=== PATIENT | female | born 1955 | race Caucasian/White ===

== ENCOUNTER 2016-09-25 11:07 | Observation (INO) | payer OTHER ==
[2016-09-24 10:15] LABS: BLOOD UREA NITROGEN 11 mg/dL (7-18)
[2016-09-24 10:18] LABS: ASPARTATE AMINO TRANSFERASE 17 U/L (15-37)
[~2016-09-25] VITALS: Ht 157.5 cm; Wt 89.1 kg
[~2016-09-25 11:07] MED LIST: SERT50TA PO; WILL BRING LIST
[2016-09-25] MEDS ORDERED: SODIUM CHLORIDE 0.9% 1,000 ML IV SCH ×2 (11:21→16:00)
[2016-09-25 11:34] VITALS: BP 128/69
[2016-09-25] MEDS ORDERED: PANT40TA5 PO (11:39)
[2016-09-25] MEDS ORDERED: ESCI10TA PO (11:39)
[2016-09-25] MEDS ORDERED: EMPA10TA PO (11:41)
[2016-09-25] MEDS ORDERED: ASPI-496 PO (11:46)
[2016-09-25] MEDS ORDERED: NITROGLYCERIN 5 MG/ML, 10ML ONE (13:25)
[2016-09-25] MEDS ORDERED: MIDAZOLAM 1 MG/ML, 5ML ONE (13:25)
[2016-09-25] MEDS ORDERED: FENTANYL PF 100 MCG/2ML ONE (13:25)
[2016-09-25] MEDS ORDERED: TICAGRELOR 90 MG TABLET ONE (13:26)
[2016-09-25] MEDS ORDERED: LIDOCAINE 2%, 20ML ONE (13:26)
[2016-09-25] MEDS ORDERED: HEPARIN 1,000 UNITS/ML, 10ML ONE (13:26)
[2016-09-25] MEDS ORDERED: BIVALIRUDIN 250 MG ONE (13:26)
[2016-09-25] MEDS ORDERED: VERAPAMIL 2.5 MG/ML, 2ML ONE (13:26)
[2016-09-25] MEDS ORDERED: ZOLPIDEM 5MG TABLET PO PRN (15:00)
[2016-09-25] MEDS ORDERED: BISACODYL 5 MG EC TABLET PO PRN (15:00)
[2016-09-25] MEDS ORDERED: ACETAMINOPHEN 325 MG TABLET PO PRN (15:00)
[2016-09-25] MEDS ORDERED: ONDANSETRON 2MG/ML, 2ML IVPush PRN (15:00)
[2016-09-25 15:35] VITALS: BP 151/89
[2016-09-25] MEDS ORDERED: HYDROcodone/APAP 5/325 TABLET PO PRN (17:00)
[2016-09-25 20:31] VITALS: BP 123/85
[2016-09-25] MEDS: TICAGRELOR 90 MG TABLET PO SCH (21:26)
[2016-09-26 03:41] VITALS: BP 142/92
[2016-09-26 05:14] LABS: BLOOD UREA NITROGEN 13 mg/dL (7-18)
[2016-09-26] MEDS ORDERED: PANTOPROZOLE 40MG TABLET PO SCH (07:30)
[2016-09-26] MEDS: TICAGRELOR 90 MG TABLET PO SCH (07:56)
[2016-09-26 08:19] VITALS: BP 138/83
[2016-09-26] MEDS ORDERED: CITALOPRAM 20 MG TABLET PO SCH (09:00)
[2016-09-26] MEDS ORDERED: ASPIRIN 81 MG TABLET EC PO SCH (09:00)
[2016-09-26] MEDS ORDERED: ATOR10TA9 PO (09:24)
[2016-09-26] MEDS ORDERED: TICA90TA PO (09:24)
[2016-09-27] MEDS ORDERED: PRAS10TA4 PO (10:55)
[2016-09-27] MEDS ORDERED: NITR0.4T SL (10:55)
== END 2016-09-26 12:30 | disposition home or self-care (01) ==
LOC: CACL 11:07 → ORIP 14:41 → 5SO 15:07 → DCLOUNGE 09-26 12:05
PROVIDERS: ADMIT Internal Medicine Cardiovascular Disease; ATTEND Internal Medicine Cardiovascular Disease
DX: I25.119 Atherosclerotic heart disease of native coronary artery with unspecified angina pectoris (principal); R94.39 Abnormal result of other cardiovascular function study
CPT/HCPCS: 36415; 80048; 80053; 82040; 85014; 85018; 85025; 85610; 85730; 93005; 93458; 93571; 93572; 99156; 99157; C1725; C1769; C1874; C1887; C1894; C9600; G0378; J0583; J1644; J2250; J3010; J3490; J7030; Q9967

== ENCOUNTER 2016-09-26 14:16 | Inpatient (IN) | payer OTHER ==
[~2016-09-26] VITALS: Ht 157.5 cm; Wt 95.1 kg
[~2016-09-26 14:16] MED LIST changes: +ASPI-496 PO; +ATOR10TA9 PO; +EMPA10TA PO; +ESCI10TA PO; +PANT40TA5 PO; +TICA90TA PO
[2016-09-26] MEDS ORDERED: SODIUM CHLORIDE FLUSH 10ML SYR IVF ONE (14:30)
[2016-09-26 14:54] LABS: BLOOD UREA NITROGEN 11 mg/dL (7-18)
[2016-09-26] MEDS ORDERED: NITROGLYCERIN SINGLE TAB 0.4 MG SL ONE (15:47)
[2016-09-26] MEDS ORDERED: NITROGLYCERIN SINGLE TAB 0.4 MG SL PRN (16:00)
[2016-09-26] MEDS ORDERED: SODIUM CHLORIDE FLUSH 10ML SYR IVF PRN (16:30)
[2016-09-26] MEDS ORDERED: HYDROcodone/APAP 5/325 TABLET ONE (17:55)
[2016-09-26] MEDS ORDERED: morphine SULFATE 10 MG/ML, 1ML IV PRN (18:00)
[2016-09-26] MEDS ORDERED: NITROGLYCERIN 0.4 MG BOTTLE (25 TABS) SL PRN (18:00)
[2016-09-26] MEDS ORDERED: ACETAMINOPHEN 325 MG TABLET PO PRN (18:00)
[2016-09-26] MEDS ORDERED: ONDANSETRON 2MG/ML, 2ML IVP PRN (18:00)
[2016-09-26] MEDS ORDERED: HYDROcodone/APAP 5/325 TABLET PO ONE (18:00)
[2016-09-26] MEDS ORDERED: ASPIRIN 325 MG TABLET EC PO ONE (18:00)
[2016-09-26] MEDS ORDERED: NITROGLYCERIN 0.4 MG/SPRAY SL PRN (18:00)
[2016-09-26] MEDS ORDERED: ZOLPIDEM 5MG TABLET PO PRN (18:00)
[2016-09-26 18:50] LABS: IS PT STATUS REG ER OR PRE ER? NO
[2016-09-26 19:12] VITALS: BP 123/84
[2016-09-27 00:06] LABS: IS PT STATUS REG ER OR PRE ER? NO
[2016-09-27 01:51] VITALS: BP 106/58
[2016-09-27 08:36] VITALS: BP 101/67
[2016-09-27] MEDS ORDERED: CITALOPRAM 20 MG TABLET PO SCH (09:00)
[2016-09-27] MEDS ORDERED: PANTOPROZOLE 40MG TABLET PO SCH (09:00)
[2016-09-27] MEDS ORDERED: PRASUGREL 10 MG TABLET PO SCH (09:00)
[2016-09-27] MEDS ORDERED: ASPIRIN 81 MG TABLET EC PO SCH (09:00)
[2016-09-27] MEDS ORDERED: NITR0.4T SL (10:55)
[2016-09-27] MEDS ORDERED: PRAS10TA4 PO (10:55)
== END 2016-09-27 11:47 | disposition home or self-care (01) | DRG 204 ==
LOC: ED 16:18 → EDIP 16:19 → ED 16:36 → 5SO 18:35 → DCLOUNGE 09-27 11:28
PROVIDERS: ADMIT Family Medicine; ATTEND Family Medicine
DX: R06.02 Shortness of breath (principal); I25.10 Atherosclerotic heart disease of native coronary artery without angina pectoris; R07.9 Chest pain, unspecified; E11.9 Type 2 diabetes mellitus without complications; E66.01 Morbid (severe) obesity due to excess calories; E78.5 Hyperlipidemia, unspecified; M26.609 Unspecified temporomandibular joint disorder, unspecified side; I10 Essential (primary) hypertension; I25.2 Old myocardial infarction; Z86.73 Personal history of transient ischemic attack (TIA), and cerebral infarction without residual deficits; Z95.5 Presence of coronary angioplasty implant and graft; Z98.84 Bariatric surgery status; Z68.38 Body mass index [BMI] 38.0-38.9, adult; Z72.89 Other problems related to lifestyle; Z91.048 Other nonmedicinal substance allergy status; T45.525A Adverse effect of antithrombotic drugs, initial encounter
CPT/HCPCS: 36415; 71010; 80048; 80061; 82040; 84484; 85025; 93005

== ENCOUNTER 2016-09-29 13:27 | Inpatient (IN) | payer OTHER ==
[~2016-09-29] VITALS: Ht 157.5 cm; Wt 97.1 kg
[~2016-09-29 13:27] MED LIST changes: +NITR0.4T SL; +PRAS10TA4 PO
[2016-09-29] MEDS ORDERED: ONDANSETRON 2MG/ML, 2ML ONE (13:44)
[2016-09-29] MEDS ORDERED: MORPHINE SULFATE 4 MG/ML, 1ML ONE ×3 (13:44→15:33)
[2016-09-29] MEDS: MORPHINE SULFATE 4 MG/ML, 1ML IVPush PRN ×2 (13:46→14:27)
[2016-09-29] MEDS ORDERED: SODIUM CHLORIDE FLUSH 10ML SYR IVF ONE (14:00)
[2016-09-29] MEDS ORDERED: ONDANSETRON 2MG/ML, 2ML IVPush ONE (14:00)
[2016-09-29 14:28] LABS: BLOOD UREA NITROGEN 15 mg/dL (7-18)
[2016-09-29 15:10] LABS: IS PT STATUS REG ER OR PRE ER? YES
[2016-09-29] MEDS ORDERED: morphine SULFATE 10 MG/ML, 1ML IVPush PRN (16:00)
[2016-09-29] MEDS ORDERED: NITROGLYCERIN 0.4 MG BOTTLE (25 TABS) SL PRN (16:00)
[2016-09-29] MEDS ORDERED: HEPARIN 25,000 UNITS/500ML PMX 500 ML IV PRN ×2 (16:00→16:30)
[2016-09-29] MEDS ORDERED: NITROGLYCERIN OINT 2%, 1GM TP ONE ×2 (16:00→16:13)
[2016-09-29] MEDS ORDERED: HEPARIN 5,000 UNITS/ML, 1ML IV PRN ×2 (16:00→16:30)
[2016-09-29] MEDS ORDERED: MORPHINE SULFATE 4 MG/ML, 1ML IVPush ONE (16:00)
[2016-09-29] MEDS ORDERED: HEPARIN 5,000 UNITS/ML, 1ML IV ONE ×2 (16:00→16:30)
[2016-09-29] MEDS ORDERED: HEPARIN 5,000 UNITS/ML, 1ML ONE (16:10)
[2016-09-29] MEDS ORDERED: HEPARIN 25,000 UNITS/500ML PMX 500 ML ONE (16:11)
[2016-09-29] MEDS ORDERED: NITROGLYCERIN/D5W PMX 250 ML ONE (16:51)
[2016-09-29] MEDS ORDERED: NITROGLYCERIN/D5W PMX 250 ML IV PRN (17:00)
[2016-09-29] MEDS ORDERED: BIVALIRUDIN 250 MG ONE (17:04)
[2016-09-29] MEDS ORDERED: TICAGRELOR 90 MG TABLET ONE (17:04)
[2016-09-29] MEDS ORDERED: HEPARIN 1,000 UNITS/ML, 10ML ONE (17:04)
[2016-09-29] MEDS ORDERED: FENTANYL PF 100 MCG/2ML ONE (17:04)
[2016-09-29] MEDS ORDERED: MIDAZOLAM 1 MG/ML, 5ML ONE (17:04)
[2016-09-29] MEDS ORDERED: NITROGLYCERIN 5 MG/ML, 10ML ONE (17:04)
[2016-09-29] MEDS ORDERED: LIDOCAINE 2%, 20ML ONE (17:04)
[2016-09-29] MEDS ORDERED: VERAPAMIL 2.5 MG/ML, 2ML ONE (17:04)
[2016-09-29] MEDS ORDERED: PRASUGREL 10 MG TABLET ONE (17:16)
[2016-09-29] MEDS ORDERED: ACETAMINOPHEN 325 MG TABLET PO PRN (19:00)
[2016-09-29] MEDS ORDERED: BISACODYL 5 MG EC TABLET PO PRN (19:00)
[2016-09-29] MEDS ORDERED: ONDANSETRON 2MG/ML, 2ML IVPush PRN (19:00)
[2016-09-29] MEDS ORDERED: ZOLPIDEM 5MG TABLET PO PRN (19:00)
[2016-09-29] MEDS ORDERED: MAGNESIUM HYDROXIDE 8%, 30ML UDC PO PRN (19:30)
[2016-09-29] MEDS: INSULIN ASPART 100 UNITS/ML, PEN SQ-INSULIN SCH ×2 (21:00→21:33)
[2016-09-29] MEDS ORDERED: ATORVASTATIN 10 MG TABLET PO SCH ×2 (21:00)
[2016-09-29] MEDS: EPTIFIBATIDE 100 ML IV SCH (21:27)
[2016-09-29] MEDS: SODIUM CHLORIDE 0.9% 1,000 ML IV SCH (22:02)
[2016-09-29 22:06] VITALS: BP 102/56
[2016-09-29] MEDS: OXYcodone 5 MG/5 ML ORAL.SOL UDC PO PRN (22:16)
[2016-09-30 00:50] LABS: IS PT STATUS REG ER OR PRE ER? NO
[2016-09-30] MEDS ORDERED: DIPHENHYDRAMINE 25 MG CAPSULE ONE (02:25)
[2016-09-30] MEDS ORDERED: DIPHENHYDRAMINE 12.5MG/5ML, 10ML UDC PO PRN (02:30)
[2016-09-30] MEDS ORDERED: DIPHENHYDRAMINE 25 MG CAPSULE PO ONE (02:30)
[2016-09-30] MEDS: EPTIFIBATIDE 100 ML IV SCH (04:31)
[2016-09-30 04:33] VITALS: BP 113/76
[2016-09-30 05:03] LABS: BLOOD UREA NITROGEN 12 mg/dL (7-18)
[2016-09-30] MEDS: SODIUM CHLORIDE 0.9% 1,000 ML IV SCH ×3 (05:43→18:44)
[2016-09-30] MEDS: METOPROLOL TARTRATE 25 MG TABLET PO SCH ×2 (05:45→18:37)
[2016-09-30] MEDS: OXYcodone 5 MG/5 ML ORAL.SOL UDC PO PRN ×3 (05:46→20:47)
[2016-09-30] MEDS: INSULIN ASPART 100 UNITS/ML, PEN SQ-INSULIN SCH ×4 (07:00→20:46)
[2016-09-30] MEDS ORDERED: PRASUGREL 10 MG TABLET PO SCH ×2 (09:00)
[2016-09-30 10:36] LABS: IS PT STATUS REG ER OR PRE ER? NO
[2016-09-30] MEDS: PRASUGREL 10 MG TABLET PO SCH (11:02)
[2016-09-30] MEDS: ALUMINUM/MAG/SIMETHICONE 30 ML UDC PO PRN (11:02)
[2016-09-30] MEDS ORDERED: OXYcodone IR 5MG TABLET ONE (11:14)
[2016-09-30 14:12] VITALS: BP 109/68
[2016-09-30] MEDS: ISOSORBIDE MONONITRATE ER 30 MG TABLET PO SCH (14:20)
[2016-09-30] MEDS: ASPIRIN 81 MG TABLET EC PO SCH (14:20)
[2016-09-30 20:00] VITALS: BP 96/61
[2016-09-30] MEDS: ATORVASTATIN 80 MG TABLET PO SCH (20:46)
[2016-10-01] VITALS (9 sets, daily range): BP systolic 72–103; BP diastolic 40–69
[2016-10-01] MEDS: SODIUM CHLORIDE 0.9% 1,000 ML IV SCH ×2 (03:27→10:53)
[2016-10-01] MEDS: METOPROLOL TARTRATE 25 MG TABLET PO SCH ×2 (03:43→17:27)
[2016-10-01] MEDS: INSULIN ASPART 100 UNITS/ML, PEN SQ-INSULIN SCH ×4 (07:00→20:02)
[2016-10-01] MEDS: PRASUGREL 10 MG TABLET PO SCH (08:48)
[2016-10-01] MEDS: ASPIRIN 81 MG TABLET EC PO SCH (08:49)
[2016-10-01] MEDS: ISOSORBIDE MONONITRATE ER 30 MG TABLET PO SCH (08:59)
[2016-10-01] MEDS ORDERED: SODIUM CHLORIDE 0.9% 250 ML IV ONE (09:00)
[2016-10-01] MEDS ORDERED: OXYcodone IR 5MG TABLET ONE ×3 (09:02→17:29)
[2016-10-01] MEDS: OXYcodone 5 MG/5 ML ORAL.SOL UDC PO PRN ×3 (09:04→17:35)
[2016-10-01] MEDS: PANTOPROZOLE 40MG TABLET PO SCH (13:09)
[2016-10-01] MEDS: ATORVASTATIN 80 MG TABLET PO SCH (19:57)
[2016-10-01] MEDS: ALUMINUM/MAG/SIMETHICONE 30 ML UDC PO PRN (19:58)
[2016-10-02] MEDS ORDERED: DIPHENHYDRAMINE 25 MG CAPSULE PO ONE (00:30)
[2016-10-02] MEDS: SODIUM CHLORIDE 0.9% 1,000 ML IV SCH (00:32)
[2016-10-02 01:45] VITALS: BP 119/75
[2016-10-02] MEDS: INSULIN ASPART 100 UNITS/ML, PEN SQ-INSULIN SCH ×4 (07:00→20:05)
[2016-10-02] MEDS: PRASUGREL 10 MG TABLET PO SCH (08:26)
[2016-10-02] MEDS: ASPIRIN 81 MG TABLET EC PO SCH (08:26)
[2016-10-02] MEDS: PANTOPROZOLE 40MG TABLET PO SCH (08:26)
[2016-10-02] MEDS: CARVEDILOL 3.125 MG TABLET PO SCH ×2 (08:27→20:17)
[2016-10-02 08:33] VITALS: BP 123/80
[2016-10-02 09:25] VITALS: BP 108/70
[2016-10-02 15:31] VITALS: BP 112/72
[2016-10-02 18:38] LABS: BLOOD UREA NITROGEN 11 mg/dL (7-18)
[2016-10-02 19:47] VITALS: BP 116/74
[2016-10-02 20:16] VITALS: BP 118/75
[2016-10-02] MEDS: ATORVASTATIN 80 MG TABLET PO SCH (20:17)
[2016-10-02] MEDS: OXYcodone 5 MG/5 ML ORAL.SOL UDC PO PRN ×2 (20:17→21:58)
[2016-10-02] MEDS ORDERED: OMNIPAQUE 350 MG/ML, 100ML BOTTLE ONE (23:19)
[2016-10-03 00:54] VITALS: BP 92/61
[2016-10-03 05:20] LABS: BLOOD UREA NITROGEN 10 mg/dL (7-18)
[2016-10-03 05:46] VITALS: BP 112/73
[2016-10-03] MEDS: OXYcodone 5 MG/5 ML ORAL.SOL UDC PO PRN (05:47)
[2016-10-03] MEDS: INSULIN ASPART 100 UNITS/ML, PEN SQ-INSULIN SCH (07:00)
[2016-10-03 08:41] VITALS: BP 105/65
[2016-10-03] MEDS: PRASUGREL 10 MG TABLET PO SCH (08:43)
[2016-10-03] MEDS: ASPIRIN 81 MG TABLET EC PO SCH (08:43)
[2016-10-03] MEDS: CARVEDILOL 3.125 MG TABLET PO SCH (08:43)
[2016-10-03] MEDS: PANTOPROZOLE 40MG TABLET PO SCH (08:44)
[2016-10-03] MEDS ORDERED: CARV3.122 PO (15:08)
== END 2016-10-03 14:40 | disposition home health service (06) | DRG 250 ==
LOC: ED 15:39 → EDIP 15:48 → CCU 19:13 → 5SO 09-30 09:52 → DCLOUNGE 10-03 13:58
PROVIDERS: ADMIT Hospitalist; ATTEND Hospitalist
PROC: 02703ZZ Dilation of Coronary Artery, One Artery, Percutaneous Approach (ICD-10-PCS; principal; 2016-09-29)
PROC: B2101ZZ Fluoroscopy of Single Coronary Artery using Low Osmolar Contrast (ICD-10-PCS; 2016-09-29)
DX: T82.867A Thrombosis due to cardiac prosthetic devices, implants and grafts, initial encounter (principal); I21.4 Non-ST elevation (NSTEMI) myocardial infarction; I24.9 Acute ischemic heart disease, unspecified; I25.110 Atherosclerotic heart disease of native coronary artery with unstable angina pectoris; Y83.8 Other surgical procedures as the cause of abnormal reaction of the patient, or of later complication, without mention of misadventure at the time of the procedure; E78.5 Hyperlipidemia, unspecified; E11.9 Type 2 diabetes mellitus without complications; I10 Essential (primary) hypertension; G47.33 Obstructive sleep apnea (adult) (pediatric); Z86.73 Personal history of transient ischemic attack (TIA), and cerebral infarction without residual deficits; Z87.891 Personal history of nicotine dependence; Z91.19 Patient's noncompliance with other medical treatment and regimen; Z98.84 Bariatric surgery status; Z90.710 Acquired absence of both cervix and uterus; Y92.89 Other specified places as the place of occurrence of the external cause
CPT/HCPCS: 36415; 71010; 74177; 76857; 80048; 80061; 82040; 82962; 83880; 84443; 84484; 85025; 85520; 85610; 87070; 87077; 87081; 87186; 87205; 93005; 93308; 93321; 93325; 93454; 93970; 96374; 96375; 96376; 99156; 99157; C1894; J0583; J1644; J2250; J2405; J3010; J3490; Q9967; C1725; C1769; C1887; J1327; J2270; J7030; J7050; Q0163

== ENCOUNTER 2017-03-20 01:08 | Emergency (ER) | payer OTHER ==
[~2017-03-20] VITALS: Ht 157.5 cm; Wt 91.7 kg
[~2017-03-20 01:08] MED LIST changes: +CARV3.122 PO
[2017-03-20 01:58] LABS: BASOPHILS # (AUTO) 0.06 x10^3/uL (0-0.1); BASOPHILS % (AUTO) 1 % (0-1); EOSINOPHILS # (AUTO) 0.42 x10^3/uL (0-0.4); EOSINOPHILS % (AUTO) 5 % (1-7); LYMPHOCYTES # (AUTO) 2.33 x10^3/uL (1-3.4); LYMPHOCYTES % (AUTO) 26 % (22-44); MD NO; MEAN CORPUSCULAR HEMOGLOBIN 23.7 pg (27.0-34.8); MEAN CORPUSCULAR HGB CONC 31.9 g/dL (32.4-35.8); MEAN CORPUSCULAR VOLUME 74.2 fL (80-100); MONOCYTES # (AUTO) 0.48 x10^3/uL (0.2-0.8); MONOCYTES % (AUTO) 5 % (2-9); NEUTROPHILS % (AUTO) 64 % (42-75); PLATELET COUNT 306 x10^3/uL (130-400); RED BLOOD COUNT 5.55 x10^6/uL (3.82-5.3); RED CELL DISTRIBUTION WIDTH 16.5 % (9.6-15.2)
[2017-03-20 02:01] LABS: RAPID INFLUENZA A Negative (Negative); RAPID INFLUENZA B Negative (Negative)
[2017-03-20 02:06] LABS: ALBUMIN 3.5 g/dL (3.4-5.0); ANION GAP 7 mmol/L (5-15); CALCIUM 8.7 mg/dL (8.5-10.1); CHLORIDE 109 mmol/L (98-107); CREATININE 0.84 mg/dL (0.55-1.02)
[2017-03-20 02:10] LABS: TROPONIN I < 0.015 ng/mL (0.000-0.045)
[2017-03-20 04:30] VITALS: BP 122/85
== END 2017-03-20 04:39 | disposition home or self-care (01) ==
LOC: ED 03:54
DX: R05 Cough (principal); E11.9 Type 2 diabetes mellitus without complications; Z86.73 Personal history of transient ischemic attack (TIA), and cerebral infarction without residual deficits; I25.2 Old myocardial infarction
CPT/HCPCS: 36415; 71046; 80048; 82040; 84484; 85025; 87400; 93005; 99285